=== PATIENT | female | born 1945 | race Caucasian/White ===

== ENCOUNTER 2018-03-15 06:04 | Inpatient (IN) | payer MEDICARE, BC ==
[2018-03-15] MEDS ORDERED: FENTAnyl 50 MCG/ML VIAL ×2 (06:30→09:50)
[2018-03-15] MEDS ORDERED: MIDAZOLAM 1 MG/ML 2 ML INJ ×2 (06:30→09:50)
[2018-03-15] MEDS ORDERED: ROCURONIUM 50 MG INJ ×2 (06:30→07:00)
[2018-03-15] MEDS ORDERED: NEOSTIGMINE 3 MG/3 ML SYRINGE ×2 (06:30→06:39)
[2018-03-15] MEDS ORDERED: PROPOFOL 20 ML ×2 (06:30→06:36)
[2018-03-15] MEDS ORDERED: LIDOCAINE 2% (SDV) 5 ML INJ (06:30)
[2018-03-15] MEDS ORDERED: GLYCOPYRROLATE 0.4 MG INJ ×2 (06:30→06:39)
[2018-03-15] MEDS ORDERED: DEXAMETHASONE 4 MG/ML 1 ML INJ (06:38)
[2018-03-15] MEDS ORDERED: ONDANSETRON 4 MG INJ (06:38)
[2018-03-15] MEDS ORDERED: CEFAZOLIN 1 GM INJ (07:00)
[2018-03-15] MEDS ORDERED: HEPARIN 1000 UNITS/ML 10 ML INJ (07:46)
[2018-03-15] MEDS ORDERED: LABETALOL HCL 20MG INJ (08:29)
[2018-03-15] MEDS: CEFAZOLIN 1 GM INJ (09:01)
[2018-03-15] MEDS: GELATIN SIZE 100 SPONGE (09:01)
[2018-03-15] MEDS: THROMBIN 5000 UNIT VIAL (09:01)
[2018-03-15] MEDS: BUPIVACAINE 0.5%/EPI (SDV) 30 ML INJ (09:01)
[2018-03-15] MEDS ORDERED: hydrALAzine 20 MG INJ (09:26)
[2018-03-15] MEDS ORDERED: SUCCINYLCHOLINE CHLORIDE 100 MG/5 ML SYG IV (12:08)
[2018-03-15] MEDS ORDERED: SUGAMMADEX SODIUM 200 MG/2 ML VIAL IV (12:09)
[2018-03-15] MEDS ORDERED: PHENYLephrine (100 MCG/ML) 5ML SYG (13:16)
[2018-03-15] MEDS ORDERED: LIDOCAINE 4% CR (14:58)
[2018-03-15] MEDS ORDERED: FUROSEMIDE 20 MG INJ (15:13)
[2018-03-15] MEDS ORDERED: SOD CHLORIDE 0.45% 1,000 ML IV (15:40)
[2018-03-15] MEDS ORDERED: HYDROmorphONE 1 MG/5 ML IV SYRINGE IV ×2 (15:46→16:00)
[2018-03-15] MEDS ORDERED: ACETAMINOPHEN 325 MG TAB PO (16:00)
[2018-03-15] MEDS ORDERED: ALBUTEROL 0.083% (NEB) 2.5 MG/3 ML AMP HHN (16:00)
[2018-03-15] MEDS ORDERED: LABETALOL HCL 20MG INJ IV (16:00)
[2018-03-15] MEDS ORDERED: ONDANSETRON 4 MG INJ IV (16:00)
[2018-03-15] MEDS ORDERED: DIPHENHYDRAMINE 50 MG INJ IV (16:00)
[2018-03-15] MEDS ORDERED: NALOXONE (0.4 MG/ML) INJ IV (16:00)
[2018-03-15] MEDS ORDERED: PROCHLORPERAZINE 10 MG TAB PO (16:00)
[2018-03-15] MEDS ORDERED: NACL 0.9% 3 ML SYG IV (16:00)
[2018-03-15] MEDS ORDERED: METOCLOPRAMIDE 10 MG INJ IV (16:00)
[2018-03-15] MEDS ORDERED: AL HYDROX/MG HYDROX/SIMETH 30 ML CUP PO (16:00)
[2018-03-15] MEDS ORDERED: MEPERIDINE 25 MG INJ IV (16:00)
[2018-03-15] MEDS ORDERED: FENTAnyl 50 MCG/ML VIAL IV ×2 (16:00)
[2018-03-15] MEDS: HYDROmorphONE 1 MG/5 ML IV SYRINGE IV ×3 (16:07→17:19)
[2018-03-15] MEDS: ONDANSETRON 4 MG INJ IV (16:08)
[2018-03-15] MEDS: HYDROmorphONE 0.2 MG/ML PCA IV (16:17)
[2018-03-15] MEDS ORDERED: GLUCAGON 1 MG INJ IM (18:00)
[2018-03-15] MEDS ORDERED: GLUCOSE GEL 15 GRAM TUBE BUCCAL (18:00)
[2018-03-15] MEDS ORDERED: GLUCOSE GEL 15 GRAM TUBE PO ×2 (18:00)
[2018-03-15] MEDS ORDERED: DEXTROSE 50% 50 ML SYRINGE IV ×2 (18:00)
[2018-03-15] MEDS: INSULIN ASPART [NOVOLOG] 3 ML PEN SC (18:30)
[2018-03-15] MEDS: SOD CHLORIDE 0.9% 1,000 ML IV (18:44)
[2018-03-15] MEDS: CEFAZOLIN 1 GM/50 ML (PMX) 50 ML IVPB (18:48)
[2018-03-15] MEDS: ATORVASTATIN 10 MG TAB PO (20:43)
[2018-03-16] MEDS: CEFAZOLIN 1 GM/50 ML (PMX) 50 ML IVPB ×3 (00:04→13:12)
[2018-03-16] MEDS: ACCU-CHEK XX (01:22)
[2018-03-16] MEDS: SOD CHLORIDE 0.9% 1,000 ML IV ×4 (01:28→20:20)
[2018-03-16] MEDS: HYDROmorphONE 0.2 MG/ML PCA IV (01:29)
[2018-03-16 05:27] LABS: HEMATOCRIT 36.2 % (37.0-47.0); HEMOGLOBIN 11.3 g/dl (12.0-16.0)
[2018-03-16 05:57] LABS: MAGNESIUM 1.5 mg/dl (1.7-2.5)
[2018-03-16 05:57] LABS: PHOSPHORUS 5.4 mg/dl (2.5-4.9)
[2018-03-16 06:15] LABS: ANION GAP 9 (5-13); BLOOD UREA NITROGEN 18 mg/dl (7-20); CALCIUM 7.4 mg/dl (8.4-10.2); CARBON DIOXIDE 23 mmol/L (21-31); CHLORIDE 109 mmol/L (97-110); CREATININE 1.84 mg/dl (0.44-1.00); GLUCOSE 197 mg/dl (70-220); POTASSIUM 4.5 mmol/L (3.5-5.1); SODIUM 141 mmol/L (135-144)
[2018-03-16] MEDS: metFORMIN 500 MG TAB PO (07:20)
[2018-03-16] MEDS: LOSARTAN 50 MG TAB PO (07:43)
[2018-03-16] MEDS ORDERED: GLIMEPIRIDE 2 MG TAB PO (07:50)
[2018-03-16] MEDS: SOD CHLORIDE 0.9% 500 ML IV ×2 (07:52→09:01)
[2018-03-16] MEDS: DOCUSATE SODIUM 100 MG CAP PO ×2 (09:00→20:15)
[2018-03-16] MEDS: INSULIN ASPART [NOVOLOG] 3 ML PEN SC ×4 (09:04→20:43)
[2018-03-16] MEDS: HYDROmorphONE 1 MG/ML SYG IV ×3 (11:39→20:14)
[2018-03-16] MEDS: TAMSULOSIN (SR) 0.4 MG CAP PO (11:45)
[2018-03-16] MEDS: ATORVASTATIN 10 MG TAB PO (20:15)
[2018-03-16] MEDS ORDERED: VITAMIN A & D 5 GM OINT PACKET TOP (20:17)
[2018-03-17] MEDS: HYDROmorphONE 1 MG/ML SYG IV ×3 (00:33→08:43)
[2018-03-17] MEDS: ACCU-CHEK XX (01:27)
[2018-03-17] MEDS: HYDROCODONE/APAP (5/325) TAB PO ×4 (03:11→23:03)
[2018-03-17] MEDS: SOD CHLORIDE 0.9% 1,000 ML IV ×3 (03:12→19:23)
[2018-03-17 04:47] LABS: ADD MAN DIFF? NO
[2018-03-17 04:53] LABS: BASOPHILS % 0.3 % (0.0-2.0); EOSINOPHILS % 0.2 % (0.0-7.0); HEMATOCRIT 30.1 % (37.0-47.0); HEMOGLOBIN 9.4 g/dl (12.0-16.0); LYMPHOCYTES # 1.6 10^3/ul (0.8-2.9); LYMPHOCYTES % 11.6 % (15.0-51.0); MEAN CORPUSCULAR HEMOGLOBIN 28.8 pg (29.0-33.0); MEAN CORPUSCULAR HGB CONC 31.2 g/dl (32.0-37.0); MEAN CORPUSCULAR VOLUME 92.3 fl (82.0-101.0); MEAN PLATELET VOLUME 9.2 fl (7.4-10.4); MONOCYTE # 1.3 10^3/ul (0.3-0.9); MONOCYTES % 9.5 % (0.0-11.0); NEUTROPHIL # 10.4 10^3/ul (1.6-7.5); NEUTROPHILS % 77.9 % (39.0-77.0); PLATELET COUNT 224 10^3/UL (140-415); RED BLOOD COUNT 3.26 10^6/ul (4.20-5.40); RED CELL DISTRIBUTION WIDTH 14.6 % (11.5-14.5)
[2018-03-17 04:53] LABS: WHITE BLOOD COUNT 13.3 10^3/ul (4.8-10.8)
[2018-03-17 05:21] LABS: ANION GAP 6 (5-13); BLOOD UREA NITROGEN 18 mg/dl (7-20); CALCIUM 7.1 mg/dl (8.4-10.2); CARBON DIOXIDE 22 mmol/L (21-31); CHLORIDE 111 mmol/L (97-110); CREATININE 1.24 mg/dl (0.44-1.00); GLUCOSE 190 mg/dl (70-220); POTASSIUM 4.1 mmol/L (3.5-5.1); SODIUM 139 mmol/L (135-144)
[2018-03-17] MEDS: DOCUSATE SODIUM 100 MG CAP PO ×2 (08:33→20:22)
[2018-03-17] MEDS: LOSARTAN 50 MG TAB PO (08:34)
[2018-03-17] MEDS: INSULIN ASPART [NOVOLOG] 3 ML PEN SC ×2 (12:53→17:52)
[2018-03-17] MEDS: ATORVASTATIN 10 MG TAB PO (20:22)
[2018-03-18] MEDS: ACCU-CHEK XX (02:00)
[2018-03-18] MEDS: HYDROCODONE/APAP (5/325) TAB PO ×5 (04:20→21:19)
[2018-03-18] MEDS: SOD CHLORIDE 0.9% 1,000 ML IV (04:39)
[2018-03-18 05:08] LABS: ADD MAN DIFF? NO
[2018-03-18 05:13] LABS: BASOPHILS % 0.2 % (0.0-2.0); EOSINOPHILS # 0.2 10^3/ul (0.0-0.5); EOSINOPHILS % 1.6 % (0.0-7.0); HEMATOCRIT 29.8 % (37.0-47.0); HEMOGLOBIN 9.2 g/dl (12.0-16.0); LYMPHOCYTES # 2.3 10^3/ul (0.8-2.9); LYMPHOCYTES % 17.9 % (15.0-51.0); MEAN CORPUSCULAR HEMOGLOBIN 28.8 pg (29.0-33.0); MEAN CORPUSCULAR HGB CONC 30.9 g/dl (32.0-37.0); MEAN CORPUSCULAR VOLUME 93.1 fl (82.0-101.0); MEAN PLATELET VOLUME 9.6 fl (7.4-10.4); MONOCYTE # 1.1 10^3/ul (0.3-0.9); MONOCYTES % 8.2 % (0.0-11.0); NEUTROPHIL # 9.1 10^3/ul (1.6-7.5); NEUTROPHILS % 71.7 % (39.0-77.0); PLATELET COUNT 214 10^3/UL (140-415); RED CELL DISTRIBUTION WIDTH 14.5 % (11.5-14.5)
[2018-03-18 05:13] LABS: WHITE BLOOD COUNT 12.7 10^3/ul (4.8-10.8)
[2018-03-18 05:30] LABS: POSITIVE DIFF @See below
[2018-03-18 05:45] LABS: ANION GAP 6 (5-13); BLOOD UREA NITROGEN 11 mg/dl (7-20); CALCIUM 7.6 mg/dl (8.4-10.2); CARBON DIOXIDE 20 mmol/L (21-31); CHLORIDE 113 mmol/L (97-110); GLUCOSE 139 mg/dl (70-220); POTASSIUM 3.8 mmol/L (3.5-5.1); SODIUM 139 mmol/L (135-144)
[2018-03-18 08:27] LABS: ALBUMIN 2.5 g/dl (3.3-4.9); MAGNESIUM 1.6 mg/dl (1.7-2.5)
[2018-03-18 08:27] LABS: PHOSPHORUS 2.1 mg/dl (2.5-4.9)
[2018-03-18] MEDS: DOCUSATE SODIUM 100 MG CAP PO ×2 (08:57→20:44)
[2018-03-18] MEDS: INSULIN ASPART [NOVOLOG] 3 ML PEN SC ×3 (09:01→18:12)
[2018-03-18] MEDS: MAGNESIUM SULFATE 2 GM/50 ML 50 ML IVPB (16:53)
[2018-03-18] MEDS: SODIUM PHOSPHATE 20 MEQ in SOD CHLORIDE 0.9% 250 ML IVPB (19:00)
[2018-03-18] MEDS: ATORVASTATIN 10 MG TAB PO (20:44)
[2018-03-19] MEDS: HYDROCODONE/APAP (5/325) TAB PO ×2 (01:24→06:30)
[2018-03-19] MEDS: ACCU-CHEK XX (02:00)
[2018-03-19] MEDS: SOD CHLORIDE 0.9% 1,000 ML IV (03:40)
[2018-03-19 05:15] LABS: ADD MAN DIFF? NO
[2018-03-19 05:21] LABS: WHITE BLOOD COUNT 9.7 10^3/ul (4.8-10.8)
[2018-03-19 05:21] LABS: BASOPHILS % 0.2 % (0.0-2.0); EOSINOPHILS # 0.3 10^3/ul (0.0-0.5); EOSINOPHILS % 2.6 % (0.0-7.0); HEMOGLOBIN 8.9 g/dl (12.0-16.0); LYMPHOCYTES # 1.6 10^3/ul (0.8-2.9); LYMPHOCYTES % 16.9 % (15.0-51.0); MEAN CORPUSCULAR HEMOGLOBIN 28.9 pg (29.0-33.0); MEAN CORPUSCULAR HGB CONC 31.8 g/dl (32.0-37.0); MEAN CORPUSCULAR VOLUME 90.9 fl (82.0-101.0); MEAN PLATELET VOLUME 9.2 fl (7.4-10.4); MONOCYTE # 0.8 10^3/ul (0.3-0.9); MONOCYTES % 8.6 % (0.0-11.0); NEUTROPHIL # 6.9 10^3/ul (1.6-7.5); NEUTROPHILS % 71.2 % (39.0-77.0); PLATELET COUNT 257 10^3/UL (140-415); RED BLOOD COUNT 3.08 10^6/ul (4.20-5.40); RED CELL DISTRIBUTION WIDTH 14.2 % (11.5-14.5)
[2018-03-19 06:00] LABS: IRON 14 ug/dl (35-150)
[2018-03-19 06:01] LABS: ANION GAP 9 (5-13); BLOOD UREA NITROGEN 8 mg/dl (7-20); CARBON DIOXIDE 22 mmol/L (21-31); CHLORIDE 108 mmol/L (97-110); GLUCOSE 153 mg/dl (70-220); PHOSPHORUS 2.7 mg/dl (2.5-4.9); POTASSIUM 3.2 mmol/L (3.5-5.1); SODIUM 139 mmol/L (135-144)
[2018-03-19 06:09] LABS: % IRON SATURATION 7 % SAT (22-52); TOTAL IRON BINDING CAPACITY 205 ug/dl (241-421)
[2018-03-19] MEDS: DOCUSATE SODIUM 100 MG CAP PO (08:59)
[2018-03-19] MEDS: FERROUS FUMARATE (SR) TAB PO (08:59)
[2018-03-19] MEDS: POTASSIUM CHLORIDE (SR) 20 MEQ TAB PO (09:00)
[2018-03-19] MEDS: INSULIN ASPART [NOVOLOG] 3 ML PEN SC ×2 (09:02→11:10)
[2018-03-19] MEDS: HYDROmorphONE 1 MG/ML SYG IV (11:36)
== END 2018-03-19 15:17 | disposition home or self-care (01) | DRG 454 ==
LOC: REC 06:04 → MS1 17:35
PROVIDERS: Orthopaedic Surgery
PROC: 0SG00K0 Fusion of Lumbar Vertebral Joint with Nonautologous Tissue Substitute, Anterior Approach, Anterior Column, Open Approach (ICD-10-PCS; principal; 2018-03-15 08:00)
PROC: 0SG00K1 Fusion of Lumbar Vertebral Joint with Nonautologous Tissue Substitute, Posterior Approach, Posterior Column, Open Approach (ICD-10-PCS; 2018-03-15 08:00)
PROC: 0ST20ZZ Resection of Lumbar Vertebral Disc, Open Approach (ICD-10-PCS; 2018-03-15 08:00)
PROC: 0DNW0ZZ Release Peritoneum, Open Approach (ICD-10-PCS; 2018-03-15 08:03)
DX: M48.061 Spinal stenosis, lumbar region without neurogenic claudication (principal); N17.9 Acute kidney failure, unspecified; D62 Acute posthemorrhagic anemia; K56.7 Ileus, unspecified; M51.16 Intervertebral disc disorders with radiculopathy, lumbar region; M43.16 Spondylolisthesis, lumbar region; E11.9 Type 2 diabetes mellitus without complications; E66.9 Obesity, unspecified; G47.30 Sleep apnea, unspecified; Z68.37 Body mass index [BMI] 37.0-37.9, adult; I10 Essential (primary) hypertension; E78.5 Hyperlipidemia, unspecified; M53.2X6 Spinal instabilities, lumbar region; K66.0 Peritoneal adhesions (postprocedural) (postinfection); E87.6 Hypokalemia; E83.42 Hypomagnesemia; E83.39 Other disorders of phosphorus metabolism
CPT/HCPCS: 72114; 80048; 82040; 82728; 82962; 83540; 83735; 84100; 84443; 85014; 85018; 85025; 86850; 86900; 86901; 86920; 87086; 97110; 97116; 97161; 97530